=== PATIENT | female | born 1970 | race Caucasian/White ===

== ENCOUNTER 2023-08-27 23:34 | Emergency (ER) | payer MEDICARE, OTHER, SELFPAY ==
[2023-08-27 23:37] VITALS: BP 146/96
--- NOTE | 2023-08-27 23:52 | ED.GENMED ---
History of Present Illness
General
Chief Complaint: Breathing Problem
Source: patient and other (Friend)
Exam Limitations: none
Time Seen by Provider: 08/27/23 23:43
Travel History
Have you had any contact with someone who has COVID-19?: No
Do you have any symptoms of coronavirus? Fever > 100 degrees, chills, cough, shortness of breath, sore throat, loss of taste or smell, muscle aches, or headache?: No
History of Present Illness
History of Present Illness:
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 States that around 9-9:30pm she started with had difficulty breathing. States that she she could feel the muscles in her throat start to tighten and this moved down into her
chest and upper abd. States that it is also going down the left leg. States that this is her normal cycle. States that she is slightly nauseated and she took Zofran. States that she is SOB. States that she is with a friend and forgot her
medication. Denies any fever, chills chest pain, vomiting, diarrhea, headache, dizziness, urinary burning.
Past History
Past History
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
ED Past Surgical History: Gynecological (Hysterectomy)
Social History
Tobacco: Non-smoker
Alcohol: Occasional
Personal:
Living: with family
Review of Systems
Review of Systems
All Other Systems: ROS reviewed and negative except as documented in HPI and ROS
Constitutional: Reports no symptoms; Denies fever or chills
EENT: Reports no symptoms
Respiratory: Reports trouble breathing; Denies cough
Cardiac: Denies chest pain
ABD/GI: Reports abdominal pain (Upper abd muscle tightness) and nausea; Denies vomiting or diarrhea
: Reports no symptoms; Denies dysuria, frequency or urgency
Musculoskeletal: Reports other (Muscle tightness in the throat moving down into her chest and into her left leg)
Skin: Reports no symptoms
Neurological: Reports no symptoms; Denies dizzy or headache
Psychiatric: Reports no symptoms
Phy Exam
General Physical Exam
General Presentation: mild distress
General age: appears stated age
General Skin: warm and dry
General Habitus: normal
General Mental: alert
General Hydration: appears well hydrated
ENT Exam
ENT Exam: TM's normal and pharynx normal
Eye Exam
Eye Exam: EOMI
Cardiovascular Exam
Cardiovascular Exam: regular rate/rhythm, no edema, no murmur and normal peripheral pulses
Pulmonary Exam
Pulmonary Exam: lungs clear, no respiratory distress, no rales, chest non tender, no crackles, no rhonchi, no wheezing and no cough
Gastrointestinal Exam
Gastrointestinal Exam: normal bowel sounds, non tender, no organomegaly, no pulsatile mass, non distended and other (Muscle tightness noted in the upper abd)
Musculoskeletal Exam
Musculoskeletal Exam: full ROM and no edema
Skin Exam
Skin Exam: normal color, warm/dry, no rash and no petechia
Psychiatric Exam
Psychiatric Exam: anxious
Scores
Heart Failure Risk
Heart Failure Risk Score: Not Applicable
Course
Orders/Labs/Results
Orders:
Orders
08/27/23 23:00
Flush (0.9% Sodium Chloride) [Flush (Nss)] See Dose Instructions IV PER PROTOCOL
08/27/23 23:51
Diazepam [Valium] 5 mg PO NOW STA
08/27/23 23:58
Baclofen [Lioresal] 20 mg PO NOW STA
Vital Signs
Initial and Last Documented VS:
Initial Vital Signs
Temp Pulse Resp BP Pulse Ox
98.7 F 64 28 146/96 97
08/27/23 23:37 08/27/23 23:37 08/27/23 23:37 08/27/23 23:37 08/27/23 23:37
Last Documented Vital Signs
Temp Pulse Resp BP Pulse Ox
98.7 F 53 16 121/71 97
08/27/23 23:37 08/28/23 00:25 08/28/23 00:25 08/28/23 01:30 08/28/23 01:45
MDM/Problems Addressed
Differential Diagnosis Includes:
Stiff man syndrome, Anxiety
MDM/Problems Addressed:
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 States that she is here with a friend and forgot her medication. States that she normally take Baclofen and Valium.
Will give patient her Medication as prescribed and watch.
Back into see patient. Patient states that she is feeling better and that it does take some time before it goes away. States that she has her medication for the morning. Will discharge home.
Chronic conditions affecting care:
Stiff man syndrome
Acute Exacerbation and/or Progression of Chronic Illness:
Stiff man syndrome
*Pulse Oximetry
Patient hypoxic: no
*EKG
Interpreted by ED Provider?: NA
Rate: EKG- N/A
*Manager Radiation Interpretation
Rate: Manager Radiation- N/A
*Critical Care Note
Total Time (30-74mins, 75-104mins- exclusive of procedures): Not Applicable
ED Attending Note
-
Portions of this chart may have been created with voice recognition software.� Occasional wrong word or��sound alike� substitutions may have occurred due to the inherent limitations of voice recognition software.
Discharge Plan
Departure
Patient Disposition: Home (Routine Discharge)
Date of Disposition: 08/28/23
Time of Disposition: 02:05
Patient with high blood pressure during this ER visit?: No
Condition: Good
Covid-19: Not Applicable
Discharge Problem:
Stiff-man syndrome
Prescriptions:
No Action
furosemide 40 mg Tablet
40 mg PO BID
azathioprine [Imuran] 50 mg Tablet
150 mg PO DAILY
valacyclovir [Valtrex] 500 mg Tablet
500 mg PO DAILY
baclofen 20 mg Tablet
20 mg PO QID
modafinil 200 mg Tablet
200 mg PO BID
estradiol 2 mg Tablet
2 mg PO BID
diltiazem HCl 120 mg Capsule,Extended Release 24hr
120 mg PO DAILY
gabapentin 100 mg Capsule
100 mg PO TID
hydroxychloroquine [Plaquenil] 200 mg Tablet
200 mg PO BID
spironolactone [Aldactone] 50 mg Tablet
50 mg PO BID
diazepam 5 mg Tablet
5 mg PO QID
esomeprazole magnesium [Nexium 24HR] 20 mg Tablet,Delayed Release (Dr/Ec)
20 mg PO DAILY
magnesium oxide 400 mg magnesium Capsule
400 mg PO BID
IgG-hyaluronidase,recombinant
Patient Comments:
every 2 weeks
Saphnelo
IV
Patient Comments:
every 4 weeks gets a dose / doesnt know the dose
Vitamin D3
1,250 mg PO WEEKLY
potassium
10 meq PO DAILY
Rx Instructions:
extended release
Referrals:
Feliciano Antoine DO [Family Provider] - Call in 1-3 days for appt
Activity Restrictions/Additional Instructions:
As discussed, you have been given your medications that you normally take for your Stiff man syndrome. Please take your medications as directed. Follow up with the family doctor for recheck. IF YOU HAVE ANY OTHER CONCERNS PLEASE RETURN TO THE
EMERGENCY ROOM.
Interventions
Interventions:
*Risk Screen - Suicide Last Done: 08/28/23 00:07
*General Assessment Last Done: 08/28/23 00:07
*Neglect/Abuse Screening Last Done: 08/28/23 00:07
ED- Fall Risk Assessment Last Done: 08/28/23 00:07
*Nursing Disposition Last Done: 08/28/23 01:57
ED- Cardiac Assessment Last Done: 08/28/23 00:07
ED- Pulmonary Assessment Last Done: 08/28/23 00:07
Discharge Date and Time
Print Language: TELUGU
[2023-08-27] MEDS: VALIUM 5 MG PO (23:58)
[2023-08-28] MEDS: LIORESAL 20 MG PO (00:22)
[2023-08-28 00:24] VITALS: BP 123/78
[2023-08-28 00:25] VITALS: BP 123/78
[2023-08-28 00:30] VITALS: BP 123/69
[2023-08-28 01:00] VITALS: BP 123/73
[2023-08-28 01:30] VITALS: BP 121/71
== END 2023-08-28 02:08 | disposition home or self-care (01) ==
LOC: EMR 23:34
PROVIDERS: EMERGENCY PHYSICIAN Emergency Medicine; FAMILY PHYSICIAN Family Medicine
DX: G25.82 Stiff-man syndrome (principal); M35.00 Sjogren syndrome, unspecified; M32.9 Systemic lupus erythematosus, unspecified; K58.9 Irritable bowel syndrome, unspecified; Z90.710 Acquired absence of both cervix and uterus
CPT/HCPCS: 99282

== ENCOUNTER → 2023-12-19 13:12 | Outpatient (REF) | payer MEDICARE, OTHER, SELFPAY | LOC: HWWDC 13:12 | PROVIDERS: ATTENDING PHYSICIAN Nurse Practitioner Women's Health; FAMILY PHYSICIAN Family Medicine; REFERRING PHYSICIAN Internal Medicine Rheumatology | DX: Z12.31 Encounter for screening mammogram for malignant neoplasm of breast (principal); M25.551 Pain in right hip | CPT/HCPCS: 73523 ==